=== PATIENT | female | born 1970 | race African-American/Black ===

== ENCOUNTER 2021-02-16 12:19 | Emergency (ER) | payer OTHER ==
[~2021-02-16] VITALS: Ht 157.5 cm; Wt 92.2 kg
[2021-02-16] MEDS ORDERED: ALPR0.25 PO (12:54)
--- NOTE | 2021-02-16 12:54 | PHYS DOC ---
Past History Past Surgical History: Hysterectomy, Other Alcohol Use: None General Adult EDM: Chief Complaint: HYPERTENSION HPI: HPI: Patient is a 50 year old female with a past medical history hypertension hyperlipidemia presents with a chief complaint of high blood pressure. Patient states over the last week her blood pressures have been elevated. She states prior to arrival it was greater than 200 systolic. Patient endorses a lot of stress this week related to taking Tests as well as poor diet because she is living in hotel without full kitchen. Patient states this week she has felt very anxious related to stress. She states she knows when her blood pressure is high because she gets migraines. States she has had migraines on and off this week. She denies any new headache, chest pain, or shortness of breath. Review of Systems: Review of Systems: Constitutional: Denies fever or chills Eyes: Denies change in visual acuity HENT: Denies nasal congestion or sore throat Respiratory: Denies cough or shortness of breath Cardiovascular: Denies chest pain or edema GI: Denies abdominal pain, nausea, vomiting, bloody stools or diarrhea : Denies dysuria Musculoskeletal: Denies back pain or joint pain Integument: Denies rash Neurologic: Denies headache, focal weakness or sensory changes positive migraines Endocrine: Denies polyuria or polydipsia Lymphatic: Denies swollen glands Psychiatric: Denies depression Positive anxiety Allergies: Allergies: Allergies Coded Allergies Type Severity Reaction Last Updated Verified No Known Drug Allergies 02/16/21 No Physical Exam: PE: Constitutional: Well developed, well nourished, no acute distress, non-toxic appearance. [] HENT: Normocephalic, atraumatic, bilateral external ears normal, oropharynx moist, no oral exudates, nose normal. [] Eyes: PERRLA, EOMI, conjunctiva normal, no discharge. [] Neck: Normal range of motion, no tenderness, supple, no stridor. [] Cardiovascular:Heart rate regular rhythm, no murmur [] Lungs & Thorax: Bilateral breath sounds clear to auscultation [] Abdomen: Bowel sounds normal, soft, no tenderness, no masses, no pulsatile masses. [] Skin: Warm, dry, no erythema, no rash. [] Back: No tenderness, no CVA tenderness. [] Extremities: No tenderness, no cyanosis, no clubbing, ROM intact, no edema. [] Neurologic: Alert and oriented X 3, normal motor function, normal sensory function, no focal deficits noted. [] Psychologic: Affect normal, judgement normal, mood normal. [] Current Patient Data: Vital Signs: Vital Signs Date Time Temp Pulse Resp B/P (MAP) Pulse Ox O2 Delivery O2 Flow Rate FiO2 02/16/21 12:19 98.4 77 14 144/95 97 Room Air EKG: EKG: Performed at 1228 Rate 80 Normal sinus rhythm No ST elevation No ST depression No acute GA [] Radiology/Procedures: Radiology/Procedures: [] Heart Score: C/O Chest Pain: N/A Risk Factors: Risk Factors: DM, Current or recent (<one month) smoker, HTN, HLP, family history of CAD, obesity. Risk Scores: Score 0 - 3: 2.5% MACE over next 6 weeks - Discharge Home Score 4 - 6: 20.3% MACE over next 6 weeks - Admit for Clinical Observation Score 7 - 10: 72.7% MACE over next 6 weeks - Early Invasive Strategies Course & Med Decision Making: Course & Med Decision Making Pertinent Labs and Imaging studies reviewed. (See chart for details) [] Patient was evaluated for chief complaint. Work-up consisted of EKG. Results reviewed and discussed with patient. Patient's blood pressure had greatly improved at the time of my evaluation. Patient's blood pressure is 140 systolic. Patient is on lisinopril and amlodipine. Patient states she has been taking these medications for approximately 5 years. Patient endorses a lot of stress related to work. She also endorses a poor diet. At this time based upon history of present illness and physical exam I see no need for f laboratory analysis or radiologic imaging. Patient advised to continue taking her current medications. Will prescribe patient small dose of xanax for anxiety. Patient advised to follow-up with her primary care physician when she returns home to [place]. Arsalan Disclaimer: Arsalan Disclaimer: This electronic medical record was generated, in whole or in part, using a voice recognition dictation system. Departure Departure: Impression: Primary Impression: Hypertension Additional Impression: Anxiety Disposition: HOME / SELF CARE / HOMELESS Condition: STABLE Referrals: PCP,NO (PCP) Patient Instructions: Anxiety and Panic Attacks, Hypertension Scripts Alprazolam (XANAX) 0.25 Mg Tablet 0.25 MG PO PRN Q6HRS PRN for ANXIETY / AGITATION, #10 TAB 0 Refills Prov: DOMINIK LEE DO 02/16/21 DOMINIK LEE DO Feb 16, 2021 12:54
[2021-02-16 12:58] VITALS: BP 136/89
--- NOTE | 2021-02-16 13:16 | EKG ---
[address] [address] Test Date: 2021-02-16 Test Time: 12:28:23 Pat Name: MICHELLE ALEJO Department: Room: Gender: F Vp [employer]: [employer] : 1970 Requested By: DOMINIK LEE Order Number: [id number] Reading MD: Measurements Intervals [place] Rate: 80 P: 41 CA: 146 QRS: 0 QRSD: 80 T: 12 QT: 378 QTc: 440 Interpretive Statements SINUS RHYTHM LEFTWARD AXIS OTHERWISE NORMAL ECG RI6.02 No previous ECG available for comparison
== END 2021-02-16 12:58 | disposition home or self-care (01) ==
LOC: ER 12:19
DX: I10 Essential (primary) hypertension (principal); F41.9 Anxiety disorder, unspecified; E78.5 Hyperlipidemia, unspecified; Z90.710 Acquired absence of both cervix and uterus
CPT/HCPCS: 93005; 99283